=== PATIENT | female | born 1950 | race African-American/Black ===

== ENCOUNTER 2017-10-10 10:29 | Inpatient (IN) | payer MEDICARE, OTHER ==
[~2017-10-10] VITALS: Ht 157.5 cm; Wt 91.4 kg
[2017-10-10] MEDS ORDERED: SODIUM CHLORIDE 0.9% 1,000 ML IVB ONE (10:48)
[2017-10-10] MEDS ORDERED: PROMETHAZINE HCL 25 MG/ML 1ML IV ONE (11:00)
[2017-10-10] MEDS ORDERED: MORPHINE SULFATE 8mg/ml INJ SDV IV ONE (11:00)
[2017-10-10 11:21] LABS: Basophils # (auto) 0 uL; Eosinophils # (auto) 0.1 uL; Lymphocytes # (auto) 2.5 uL; Monocytes # (auto) 0.5 uL; Nucleated Red Blood Cells % 0.1 %; Platelet Count (auto) 337 10^3/uL (140-450)
[2017-10-10 11:23] LABS: Basophils % (auto) 0.5 % (0.0-2.0); Eosinophils % (auto) 0.9 % (0.0-7.0); Hematocrit 43.7 % (36.0-46.0); Lymphocytes % (auto) 33.2 % (10.0-50.0); Mean Corpuscular Hemoglobin 23.8 pg (28.0-32.0); Mean Corpuscular Hgb Conc. 32.1 g/dL (32.0-36.0); Neutrophils # (auto) 4.3 uL; Neutrophils % (auto) 58.4 % (37.0-80.0); Red Blood Cells 5.91 10^6/uL (4.0-5.20); Red Cell Distribution Width 16.7 % (11.8-14.3); White Blood Cell 7.4 10^3/uL (4.4-10.8)
[2017-10-10 11:34] LABS: INR 0.97 (0.9-1.15); Partial Thromboplastin Time 24.7 sec (23.78-33.04); Prothrombin Time 10.4 sec (9.27-12.13)
[2017-10-10 11:50] LABS: Alanine Aminotransferase 24 U/L (13-56); Albumin 4.4 g/dL (3.4-5.0); Alkaline Phosphatase 88 U/L (45-117); Amylase 105 U/L (25-115); Anion Gap 12 (5-15); Aspartate Aminotransferase 19 U/L (15-37); BUN/Creatinine Ratio 10.2; Bilirubin, Total 0.2 mg/dL (0.2-1.0); Blood Urea Nitrogen 9 mg/dL (7-18); Calcium 9.5 mg/dL (8.5-10.1); Carbon Dioxide 23 mmol/L (21-32); Chloride 106 mmol/L (98-107); GFR African American 83 mL/min; GFR Non-African American 69 mL/min; Glucose 133 mg/dL (74-106); Lipase 510 U/L (73-393); Potassium 3.4 mmol/L (3.5-5.1); Sodium 141 mmol/L (136-145)
[2017-10-10] MEDS ORDERED: MORPHINE SULFATE 4 MG/ML SYR/VIAL ONE (12:34)
[2017-10-10] MEDS ORDERED: LORazepam 2MG/ML-1ML VIAL IV ONE (13:00)
[2017-10-10] MEDS: SODIUM CHLORIDE 0.9% 1,000 ML IV SCH ×2 (13:43→20:23)
[2017-10-10] MEDS ORDERED: cefTRIAXone 1GM/10ml IVPUSH 10 ML IV ONE (13:45)
[2017-10-10] MEDS ORDERED: TEMAZEPAM 15 MG CAP PO PRN (13:45)
[2017-10-10] MEDS ORDERED: HYDROcodone-ACET 5/325MG TAB PO PRN (13:45)
[2017-10-10] MEDS ORDERED: DEXTROSE (50%) 50ML SYRG IV PRN (13:45)
[2017-10-10] MEDS ORDERED: PROMETHAZINE HCL 25 MG/ML 1ML IV PRN (13:45)
[2017-10-10] MEDS ORDERED: MORPHINE SULFATE 10 MG/ML INJ 1ML SDV IV PRN ×2 (13:45→16:15)
[2017-10-10] MEDS ORDERED: LORazepam 2MG/ML-1ML VIAL IV PRN (13:45)
[2017-10-10] MEDS ORDERED: NITROGLYCERIN 0.4 MG SL TAB SL PRN (13:45)
[2017-10-10] MEDS ORDERED: ACETAMINOPHEN 500 MG TAB PO PRN (13:45)
[2017-10-10] MEDS: metroNIDAZOLE 500MG/100ML 100 ML IV SCH ×2 (15:00→21:00)
[2017-10-10] MEDS: InsuLIN REG 1unit/0.01ml Soln (100units/ml) SC SCH (18:00)
[2017-10-10 18:11] VITALS: BP 154/89
[2017-10-10 18:26] VITALS: BP 154/89
[2017-10-10] MEDS: ACCU-CHEK COMFORT CURVE STRIP VI SCH (19:22)
[2017-10-10] MEDS: MORPHINE SULFATE 10 MG/ML INJ 1ML SDV IV PRN (20:30)
[2017-10-10 21:09] LABS: Cholesterol 155 mg/dL (< 200); HDL Cholesterol 61 mg/dL (40-59); Triglycerides 87 mg/dL (< 150)
[2017-10-10 21:10] LABS: LDL Cholesterol 85 mg/dL (< 100)
[2017-10-10 22:00] VITALS: BP 167/90
[2017-10-10] MEDS: ATORVASTATIN 20 MG TAB PO SCH (22:00)
[2017-10-10] MEDS: PANTOPRAZOLE 40 MG TAB PO SCH (22:00)
[2017-10-10] MEDS: LEVETIRACETAM 500 MG TAB PO SCH (22:00)
[2017-10-11] MEDS: MORPHINE SULFATE 10 MG/ML INJ 1ML SDV IV PRN ×2 (00:45→06:35)
[2017-10-11] MEDS: SODIUM CHLORIDE 0.9% 1,000 ML IV SCH ×4 (03:03→22:53)
[2017-10-11] MEDS: metroNIDAZOLE 500MG/100ML 100 ML IV SCH ×4 (03:30→21:15)
[2017-10-11 05:00] VITALS: BP 123/78
[2017-10-11] MEDS: InsuLIN REG 1unit/0.01ml Soln (100units/ml) SC SCH ×4 (06:00→18:00)
[2017-10-11 06:06] LABS: Urine Bacteria NONE SEEN /hpf (None Seen); Urine Blood TRACE /uL (Negative); Urine Hyaline Cast FEW /lpf (0 - 2); Urine Mucus FEW (None Seen); Urine Specific Gravity 1.023 (1.001-1.035); Urine WBC 8 /hpf (0 - 5)
[2017-10-11] MEDS: ACCU-CHEK COMFORT CURVE STRIP VI SCH ×4 (06:23→18:33)
[2017-10-11 06:39] LABS: Alcohol, Urine < 3.0 mg/dL (0-5); Amphetamine Screen, Urine NEGATIVE (NEGATIVE); Barbiturate Scree,Urine NEGATIVE (NEGATIVE); Benzodiazephine Screen, Urine NEGATIVE (NEGATIVE); Cannabinoid Screen, Urine NEGATIVE (NEGATIVE); Cocaine Screen, Urine NEGATIVE (NEGATIVE); Opiate Scree,Urine POSITIVE (NEGATIVE); Phencyclidine Screen, Urine NEGATIVE (NEGATIVE)
[2017-10-11 07:12] LABS: Basophils # (auto) 0 uL; Basophils % (auto) 0.5 % (0.0-2.0); Eosinophils # (auto) 0.1 uL; Eosinophils % (auto) 1.5 % (0.0-7.0); Hemoglobin 12.4 g/dL (12.2-16.2); Lymphocytes # (auto) 2.6 uL; Mean Corpuscular Volume 74.3 fL (80.0-100.0); Monocytes # (auto) 0.5 uL
[2017-10-11 07:14] LABS: Hematocrit 39.2 % (36.0-46.0); Lymphocytes % (auto) 40.8 % (10.0-50.0); Mean Corpuscular Hgb Conc. 31.6 g/dL (32.0-36.0); Monocytes % (auto) 8.4 % (0.0-12.0); Neutrophils # (auto) 3.1 uL; Neutrophils % (auto) 48.8 % (37.0-80.0); Nucleated Red Blood Cells % 0.1 %; Red Blood Cells 5.28 10^6/uL (4.0-5.20); Red Cell Distribution Width 16.2 % (11.8-14.3); White Blood Cell 6.3 10^3/uL (4.4-10.8)
[2017-10-11 07:15] LABS: Mean Corpuscular Hemoglobin 23.6 pg (28.0-32.0); Platelet Count (auto) 305 10^3/uL (140-450)
[2017-10-11 07:29] LABS: Albumin 3.5 g/dL (3.4-5.0); Bilirubin, Total 0.3 mg/dL (0.2-1.0); Calcium 8.8 mg/dL (8.5-10.1); Potassium 3.3 mmol/L (3.5-5.1)
[2017-10-11 09:00] VITALS: BP 167/88
[2017-10-11] MEDS: cefTRIAXone 1GM/10ml IVPUSH 10 ML IV SCH (09:11)
[2017-10-11] MEDS: PANTOPRAZOLE 40 MG TAB PO SCH ×2 (09:12→22:35)
[2017-10-11] MEDS: CLOPIDOGREL BISULFATE 75 MG TAB PO SCH (09:12)
[2017-10-11] MEDS: ENOXAPARIN SOD 40 MG/0.4 ML SYRINGE SC SCH (09:12)
[2017-10-11] MEDS: LEVETIRACETAM 500 MG TAB PO SCH ×2 (09:12→22:00)
[2017-10-11] MEDS: LORazepam 0.5 MG TAB PO PRN ×2 (09:31→22:50)
[2017-10-11] MEDS ORDERED: PANTOPRAZOLE 40 MG TAB PO SCH (10:00)
[2017-10-11] MEDS ORDERED: diphenhdrAMINE HCL 50 MG/1 ML VL ONE (11:40)
[2017-10-11] MEDS ORDERED: SODIUM CHLORIDE LOCK 10 ML ONE (11:40)
[2017-10-11] MEDS ORDERED: LIDOCAINE VISCOUS 2% 15ML UD ONE (11:40)
[2017-10-11] MEDS: MIDAZOLAM HCL 5 MG/ML-1ML VIAL ONE ×2 (11:43→11:46)
[2017-10-11] MEDS: fentaNYL CITRATE 100 MCG/2 ML VL ONE ×2 (11:43→11:46)
[2017-10-11] MEDS ORDERED: MORPHINE SULFATE 10 MG/ML INJ 1ML SDV IV PRN (15:45)
[2017-10-11 16:06] VITALS: BP 157/68
[2017-10-11 18:16] VITALS: BP 143/76
[2017-10-11 22:00] VITALS: BP 146/82
[2017-10-11] MEDS: ATORVASTATIN 20 MG TAB PO SCH (22:00)
[2017-10-11] MEDS ORDERED: MORPHINE SULFATE 4 MG/ML SYR/VIAL ONE (22:20)
[2017-10-12] MEDS: MEPERIDINE HCL (25 MG/ML) 1ML VIAL IV PRN ×2 (01:56→11:39)
[2017-10-12] MEDS: metroNIDAZOLE 500MG/100ML 100 ML IV SCH ×2 (03:00→11:38)
[2017-10-12 05:00] VITALS: BP 150/81
[2017-10-12] MEDS: SODIUM CHLORIDE 0.9% 1,000 ML IV SCH ×2 (05:43→12:23)
[2017-10-12] MEDS: InsuLIN REG 1unit/0.01ml Soln (100units/ml) SC SCH ×3 (06:00→12:00)
[2017-10-12] MEDS: ACCU-CHEK COMFORT CURVE STRIP VI SCH ×3 (06:00→12:00)
[2017-10-12 06:35] LABS: Basophils # (auto) 0 uL; Basophils % (auto) 0.6 % (0.0-2.0); Eosinophils # (auto) 0.1 uL; Eosinophils % (auto) 1.9 % (0.0-7.0); Hematocrit 39.2 % (36.0-46.0); Hemoglobin 12.4 g/dL (12.2-16.2); Lymphocytes # (auto) 2.1 uL; Lymphocytes % (auto) 37.4 % (10.0-50.0); Mean Corpuscular Hemoglobin 23.7 pg (28.0-32.0); Mean Corpuscular Hgb Conc. 31.6 g/dL (32.0-36.0); Monocytes # (auto) 0.6 uL; Monocytes % (auto) 10.4 % (0.0-12.0); Neutrophils # (auto) 2.8 uL; Neutrophils % (auto) 49.7 % (37.0-80.0); Nucleated Red Blood Cells % 0.2 %; Platelet Count (auto) 283 10^3/uL (140-450); Red Blood Cells 5.23 10^6/uL (4.0-5.20); White Blood Cell 5.7 10^3/uL (4.4-10.8)
[2017-10-12 06:47] LABS: Potassium 3.4 mmol/L (3.5-5.1)
[2017-10-12 06:51] LABS: Albumin 3.3 g/dL (3.4-5.0); BUN/Creatinine Ratio 13.3; Calcium 8.7 mg/dL (8.5-10.1)
[2017-10-12 06:54] LABS: Bilirubin, Total 0.5 mg/dL (0.2-1.0); Total Protein 6.9 g/dL (6.4-8.2)
[2017-10-12 09:00] VITALS: BP 144/72
[2017-10-12] MEDS: ENOXAPARIN SOD 40 MG/0.4 ML SYRINGE SC SCH (10:00)
[2017-10-12] MEDS ORDERED: MORPHINE SULF INJ 2 MG/ML SYRINGE 1ML ONE (10:36)
[2017-10-12] MEDS: cefTRIAXone 1GM/10ml IVPUSH 10 ML IV SCH (11:39)
[2017-10-12] MEDS: CLOPIDOGREL BISULFATE 75 MG TAB PO SCH (11:39)
[2017-10-12] MEDS: PANTOPRAZOLE 40 MG TAB PO SCH (11:39)
[2017-10-12] MEDS: LEVETIRACETAM 500 MG TAB PO SCH (11:40)
== END 2017-10-12 13:15 | disposition home or self-care (01) | DRG 282 ==
LOC: ER 10:29 → EDBD 10:29 → TELE 10:30 → TELE-CENTR 16:55
PROVIDERS: ADMIT Internal Medicine; ATTEND Family Medicine
PROC: 0DB68ZX Excision of Stomach, Via Natural or Artificial Opening Endoscopic, Diagnostic (ICD-10-PCS; principal; 2017-10-11 11:39)
DX: K85.90 Acute pancreatitis without necrosis or infection, unspecified (principal); C90.00 Multiple myeloma not having achieved remission; K57.31 Diverticulosis of large intestine without perforation or abscess with bleeding; E11.65 Type 2 diabetes mellitus with hyperglycemia; G40.409 Other generalized epilepsy and epileptic syndromes, not intractable, without status epilepticus; E87.6 Hypokalemia; D25.9 Leiomyoma of uterus, unspecified; E78.00 Pure hypercholesterolemia, unspecified; E66.9 Obesity, unspecified; F32.9 Major depressive disorder, single episode, unspecified; F17.210 Nicotine dependence, cigarettes, uncomplicated; F41.9 Anxiety disorder, unspecified; G89.4 Chronic pain syndrome; I10 Essential (primary) hypertension; K08.89 Other specified disorders of teeth and supporting structures; K59.00 Constipation, unspecified; R32 Unspecified urinary incontinence; Z79.02 Long term (current) use of antithrombotics/antiplatelets; Z79.899 Other long term (current) drug therapy; Z80.3 Family history of malignant neoplasm of breast; Z82.1 Family history of blindness and visual loss; Z82.49 Family history of ischemic heart disease and other diseases of the circulatory system; I25.2 Old myocardial infarction; Z83.3 Family history of diabetes mellitus; Z86.73 Personal history of transient ischemic attack (TIA), and cerebral infarction without residual deficits; Z83.511 Family history of glaucoma; Z84.89 Family history of other specified conditions; Z88.6 Allergy status to analgesic agent; Z88.8 Allergy status to other drugs, medicaments and biological substances; Z90.49 Acquired absence of other specified parts of digestive tract
CPT/HCPCS: 36415; 51702; 70450; 70551; 71045; 74176; 80053; 80061; 80307; 81001; 82150; 82962; 83036; 83690; 84484; 85025; 85610; 85652; 85730; 87040; 87086; 93005; 95819; J2250; J3490